=== PATIENT | male | born 1985 | race Caucasian/White ===

== ENCOUNTER 2018-03-17 14:44 | Emergency (ER) | END 2018-03-17 18:47 | disposition home or self-care (01) ==

== ENCOUNTER 2018-04-29 16:56 | Emergency (ER) | payer SELFPAY ==
[~2018-04-29] VITALS: Ht 180.3 cm; Wt 105.5 kg
[~2018-04-29 16:56] MED LIST: ATORVASTATIN PO; HYDR-3980 PO; ONDA4TAB14 PO
[2018-04-29 16:58] VITALS: Ht 180.3 cm; Wt 105.5 kg
[2018-04-29] MEDS ORDERED: HYDROmorphONE 0.5 MG/0.5 ML SYG IV STA (20:07)
[2018-04-29] MEDS ORDERED: SOD CHLORIDE 0.9% 1,000 ML IV STA (20:07)
[2018-04-29] MEDS ORDERED: ONDANSETRON 4 MG INJ IV STA (20:07)
--- NOTE | 2018-04-29 20:14 | ERD ---
ER Documentation Chief Complaint Chief Complaint DIFFUSED ABD PAIN SWELLING WITH HEMATEMESIS XFEW HOURS HPI 32-year-old male presents here to emergency department for complaints of generalized abdominal pain that started 3 days ago, worsening, patient states that he has been vomiting the whole day, had streaks of blood started few hours prior to arrival. Patient denies any fever or chills, denies any diarrhea or constipation, denies any bloody stools. Patient denies any recent travels. Patient has history of Hirschsprung's disease. ROS All systems reviewed and are negative except as per history of present illness. Medications Home Meds Active Scripts Ondansetron (Ondansetron Odt) 4 Mg Tab.rapdis, 4 MG PO Q6H PRN for NAUSEA AND/OR VOMITING, #20 TAB Prov:CARLY BUCKLEY PA-C 03/17/18 Hydrocodone/Acetaminophen ([place] 10-325 Tablet) 1 Each Tablet, 1 TAB PO Q6H PRN for PAIN, #20 TAB Prov:CARLY BUCKLEY PA-C 03/17/18 Reported Medications [Atorvastatin] No Conflict Check, PO QHS 05/02/15 Allergies Allergies: Coded Allergies: No Known Allergy (Unverified , 05/02/15) PMhx/Soc History of Surgery: Yes (MULTIPLE COLON SX) Anesthesia Reaction: No Hx Neurological Disorder: No Hx Respiratory Disorders: No Hx Cardiac Disorders: No Hx Psychiatric Problems: No Hx Miscellaneous Medical Probl: Yes (HIGH CHOLESTEROL, HIRSCHSPRUNGS DISEASE) Hx Alcohol Use: Yes (OCC) Hx Substance Use: No Hx Tobacco Use: Yes FmHx Family History: No diabetes, No coronary disease, No other Physical Exam Vitals Vital Signs Date Temp Pulse Resp B/P (MAP) Pulse Ox O2 O2 Flow FiO2 Time Delivery Rate 04/29/18 98.6 109 14 134/67 99 16:58 (89) Physical Exam GENERAL: The patient is well developed and appropriate for usual state of health, in no apparent distress. CHEST: Clear to auscultation bilaterally. There are no rales, wheezes or rhonchi. HEART: Regular rate and rhythm. No murmurs, clicks, rubs or gallops. No S3 or S4. ABDOMEN: Soft, nontender and nondistended. Good bowel sounds. No rebound or guarding. No gross peritonitis. No gross organomegaly or masses. No Albright sign or McBurney point tenderness. BACK: No midline or flank tenderness. EXTREMITIES: Equal pulses bilaterally. There is no peripheral clubbing, cyanosis or edema. No focal swelling or erythema. Full range of motion. Grossly neurovascularly intact. NEURO: Alert and oriented. Cranial nerves 2-12 intact. Motor strength in all 4 extremities with 5/5 strength. Sensation grossly intact. Normal speech and gait. SKIN: There is no apparent rash or petechia. The skin is warm and dry. HEMATOLOGIC AND LYMPHATIC: There is no evidence of excessive bruising or lymphedema. No gross cervical, axillary, or inguinal lymphadenopathy. Result Diagram: 04/29/18201904/29/182019 Results 24 hrs Laboratory Tests Test 04/29/18 20:20 04/29/18 22:55 White Blood Count 21.9 10^3/ul Red Blood Count 5.93 10^6/ul Hemoglobin 16.9 g/dl Hematocrit 50.9 % Mean Corpuscular Volume 85.8 fl Mean Corpuscular Hemoglobin 28.5 pg Mean Corpuscular Hemoglobin Concent 33.2 g/dl Red Cell Distribution Width 14.3 % Platelet Count 247 10^3/UL Mean Platelet Volume 11.8 fl Immature Granulocytes % 0.700 % Neutrophils % 87.7 % Lymphocytes % 5.4 % Monocytes % 5.0 % Eosinophils % 1.0 % Basophils % 0.2 % Nucleated Red Blood Cells % 0.0 /100WBC Immature Granulocytes # 0.160 10^3/ul Neutrophils # 19.2 10^3/ul Lymphocytes # 1.2 10^3/ul Monocytes # 1.1 10^3/ul Eosinophils # 0.2 10^3/ul Basophils # 0.1 10^3/ul Nucleated Red Blood Cells # 0.0 10^3/ul Sodium Level 142 mmol/L Potassium Level 4.1 mmol/L Chloride Level 104 mmol/L Carbon Dioxide Level 26 mmol/L Anion Gap 12 Blood Urea Nitrogen 17 mg/dl Creatinine 1.10 mg/dl Est Glomerular Filtrat Rate mL/min > 60 mL/min Glucose Level 156 mg/dl Calcium Level 10.3 mg/dl Total Bilirubin 0.6 mg/dl Direct Bilirubin 0.00 mg/dl Indirect Bilirubin 0.6 mg/dl Aspartate Amino Transf (AST/SGOT) 45 IU/L Alanine Aminotransferase (ALT/SGPT) 60 IU/L Alkaline Phosphatase 64 IU/L Total Protein 8.4 g/dl Albumin 5.0 g/dl Globulin 3.40 g/dl Albumin/Globulin Ratio 1.47 Lipase 51 U/L Bedside Urine pH (LAB) 6.0 Bedside Urine Protein (LAB) Trace Bedside Urine Glucose (UA) Negative Bedside Urine Ketones (LAB) Negative Bedside Urine Blood Negative Bedside Urine Nitrite (LAB) Negative Bedside Urine Leukocyte Esterase (L Negative Current Medications Medications Dose Sig/Tiana Start Time Status Last (Trade) Ordered Route PRN Stop Time Admin Dose Reason Admin Sodium 1,000 ml @ Q1H STAT 04/29/18 DC 04/29/18 Chloride 1,000 mls/hr IV 20:07 20:17 04/29/18 21:06 Ondansetron 4 mg ONCE STAT 04/29/18 DC 04/29/18 HCl (Zofran IV 20:07 20:18 Inj) 04/29/18 20:10 40 mg ONCE ONCE 04/29/18 DC 04/29/18 Pantoprazole IV 20:30 20:18 (Protonix 04/29/18 20:31 Iv) 1 mg ONCE STAT 04/29/18 DC 04/29/18 Hydromorphone IV 20:07 20:19 HCl 04/29/18 20:10 (Dilaudid) IV Flush 10 ml STK-MED 04/29/18 DC 04/29/18 (NS 10 ml) ONCE .ROUTE 21:45 21:59 04/29/18 21:46 Sodium 100 ml @ ud STK-MED 04/29/18 DC 04/29/18 Chloride ONCE .ROUTE 21:45 21:59 04/29/18 21:46 Iodixanol 100 ml STK-MED 04/29/18 DC 04/29/18 (Visipaque ONCE .ROUTE 21:45 21:59 Locm) 04/29/18 21:46 Patient was given medication for pain here in emergency department, after treatment, patient verbalized feeling much better. Patient's pain is improved. Patient was given Zofran here in the emergency department. After treatment, patient was able to tolerate po fluids here in the emergency department without any vomiting. There is no signs and symptoms of dehydration. Normal saline IV bolus was given here in emergency department for rehydration, patient tolerated IV fluids. PROCEDURE: CT Abdomen and pelvis with contrast. CLINICAL INDICATION: Abdominal pain. TECHNIQUE: CT scan of the abdomen and pelvis with contrast was performed on a multi-detector high-resolution CT scanner. The patient was scanned following the uncomplicated administration of 100 cc of Visipaque 320 intravenous contrast. Coronal and sagittal reformatted images were obtained from the axial source images. Images were reviewed on a high-resolution PACS workstation. DICOM images are available. One or more of the following dose reduction techniques were used: - Automated exposure control. - Adjustment of the mA and/or kV according to patient size. - Use of iterative reconstruction technique. Exam CTD/vol = 20.04 mGy. Total exam DLP = 1332.90 mGy-cm. COMPARISON: 03/17/2018. FINDINGS: Evaluation of the lung bases demonstrates mild bibasilar atelectasis. Abdomen: The liver is normal in size and diffusely low in attenuation consistent with fatty infiltration. There is no focal mass or dilatation of the biliary tree. The gallbladder is not distended. The spleen, pancreas and bilateral adrenal glands are within normal limits. Bilateral kidneys are normal in size with symmetric enhancement. There is no focal mass, hydronephrosis or hydroureter. There are shotty mesenteric and retroperitoneal lymph nodes. The abdominal aorta is of normal caliber. The patient is status post colectomy with anastomotic sutures at the rectosigmoid junction. There is no bowel obstruction or free air. There is no ascites. Pelvis: The bladder is unremarkable. The prostate and seminal vesicles are within normal limits. There are sub-centimeter inguinal lymph nodes bilaterally. There are small lymph nodes within bilateral pelvic sidewalls with the largest on the right measuring 1.9 x 0.7 cm. There is no significant pelvic free fluid. Evaluation of the osseous structures again demonstrates and 11 mm sclerotic lesion within the L1 vertebral body. IMPRESSION: Status post colectomy. There is no bowel obstruction, intra-abdominal collection or free air. Shotty abdominal and pelvic lymph nodes. Fatty infiltration of the liver. Mild bibasilar atelectasis. Stable sclerotic lesion within the L1 and vertebral body. Otherwise no acute abnormality identified within the abdomen and pelvis. .Ethan Cook MD, MD Date Time Electronically viewed and signed by .Ethan Cook MD, MD on 04/29/2018 22:40 .T/ CC: PAPO COLLINSFartun MANTILLA [id number] Procedures/MDM Medical Decision Making: Symptoms likely consistent with viral illness, nonspecific abdominal pain at this time, elevated white count most likely is from vomiting, stress reaction. Patient also has drug-seeking behavior. There is low suspicion for abdominal emergencies at this time. Patients abdominal exam is normal at this time. Patients radiology exam does not show any abdominal emergencies at this time. There is low suspicion for appendicitis, cholecystitis, abdominal aortic aneurysms or peritonitis at this time. There is low suspicion for sepsis. Patient appears well and is hemodynamically stable. Disposition: Home. Condition: Stable Prescription Zofran, Pepcid, tramadol Instructions: Patient is advised to take medications as prescribed. Patient is advised to rest, increase fluid intake and do brat diet for next 1-2 days and progress as tolerated. Patient is advised that if symptoms are worse, severe abdominal pain, uncontrolled vomiting, high fever, severe flank pain, worst signs and symptoms, to return to the emergency department immediately. Otherwise, patient can follow up with primary care doctor in 5-7 days. Disclaimer: Inadvertent spelling and grammatical errors are likely due to EHR/dictation software use and do not reflect on the overall quality of patient care. Also, please note that the electronic time recorded on this note does not necessarily reflect the actual time of the patient encounter. Departure Diagnosis: Primary Impression: Abdominal pain Abdominal location: generalized Qualified Codes: R10.84 - Generalized abdominal pain Additional Impression: Vomiting Vomiting type: unspecified Vomiting Intractability: unspecified Nausea presence: unspecified Qualified Codes: R11.10 - Vomiting, unspecified Condition: Stable Patient Instructions: Abdominal Pain, Vomiting (6Y-Adult) Additional Instructions: Patient is advised to take medications as prescribed. Patient is advised to rest, increase fluid intake and do brat diet for next 1-2 days and progress as tolerated. Patient is advised that if symptoms are worse, severe abdominal pain, uncontrolled vomiting, high fever, severe flank pain, worst signs and symptoms, to return to the emergency department immediately. Otherwise, patient can fol low up with primary care doctor in 5-7 days. PAPO COLLINS NP Apr 29, 2018 20:14
[2018-04-29] MEDS ORDERED: PANTOPRAZOLE 40 MG INJ IV ONE (20:30)
[2018-04-29] MEDS ORDERED: SOD CHLORIDE 0.9% 100 ML ONE (21:45)
[2018-04-29] MEDS ORDERED: IODIXANOL LOCM 100 ML BTL ONE (21:45)
[2018-04-29] MEDS ORDERED: FAMO-96 PO (23:03)
[2018-04-29] MEDS ORDERED: ONDA4TAB14 PO (23:03)
[2018-04-29] MEDS ORDERED: TRAM50TA2 PO (23:03)
[2018-04-30 00:05] VITALS: BP 114/58; PULSE 90; RESP 16
== END 2018-04-30 00:06 | disposition home or self-care (01) ==
LOC: FTE 16:56
DX: R10.84 Generalized abdominal pain (principal); R11.10 Vomiting, unspecified; Z87.891 Personal history of nicotine dependence
CPT/HCPCS: 36415; 74177; 80053; 81003; 83690; 85025; 96361; 96374; 96375; 99285; C9113; J1170; J2405; J7030; Q9967